=== PATIENT | male | born 1935 | race Caucasian/White ===

== ENCOUNTER → 2016-09-03 | Outpatient (CLI) | payer MEDICARE ==
[2016-09-03 15:33] LABS: BASOPHILS # (AUTO) 0.1 T/MM3 (0-0.2); EOSINOPHILS # (AUTO) 0.2 T/MM3 (0-0.5); EOSINOPHILS % (AUTO) 2.6 % (0-4); HCT - HEMATOCRIT 39.1 % (41-53); HGB - HEMOGLOBIN 12.8 GM/DL (13.5-17.5); IMMATURE GRANULOCYTE # (AUTO) 0.01 T/MM3 (0.00-0.03); IMMATURE GRANULOCYTE % (AUTO) 0.2 % (0.0-0.5); LYMPHOCYTES # (AUTO) 2.1 T/MM3 (1-4.8); LYMPHOCYTES % (AUTO) 36.4 % (23-45); MEAN CORPUSCULAR HGB 31.4 UUG (26-34); MEAN CORPUSCULAR HGB CONC(MCHC 32.7 GM/DL (31-37); MEAN CORPUSCULAR VOLUME 96.1 UM3 (80-100); MEAN PLATELET VOLUME 9.6 UM3 (9.4-12.4); MONOCYTES # (AUTO) 0.5 T/MM3 (0-0.8); MONOCYTES % (AUTO) 9.1 % (0-9.0); NEUTROPHILS #(AUTO)-ABSOLUTE 2.9 T/MM3 (1.8-7.7); NEUTROPHILS % (AUTO) 50.7 % (33-66); RED BLOOD COUNT 4.07 M/MM3 (4.50-5.90); WBC - WHITE BLOOD COUNT 5.8 T/MM3 (4.5-11.0)
[2016-09-03 15:38] LABS: ALBUMIN 4.2 G/DL (3.5-5.0); ALBUMIN/GLOBULIN RATIO 1.4 RATIO (1.1-2.2); ALKALINE PHOSPHATASE 85 U/L (38-126); ALT (SGPT) 34 U/L (21-72); ANION GAP 13 MEQ/L (5-15); AST (SGOT) 34 U/L (17-59); BUN/CREATININE RATIO 22 RATIO (6-26); CALCIUM 9.3 MG/DL (8.4-10.2); CHLORIDE 107 MEQ/L (98-107); CO2 - CARBON DIOXIDE 27 MEQ/L (22-30); CREATININE 1.1 MG/DL (0.8-1.5); GLOMERULAR FILTRATION RATE 64; GLUCOSE 93 MG/DL (75-110); POTASSIUM 4.8 MEQ/L (3.6-5); SODIUM 147 MEQ/L (134-144); TOTAL PROTEIN 7.2 G/DL (6.3-8.2)
== END ==
LOC: LAB 15:16
PROVIDERS: ATTEND Surgery Plastic and Reconstructive Surgery
DX: Z01.818 Encounter for other preprocedural examination (principal)
CPT/HCPCS: 36415; 80053; 85025

== ENCOUNTER 2016-09-11 07:21 | Day surgery (SDC) | payer MEDICARE ==
[~2016-09-11] VITALS: Ht 152.4 cm; Wt 68.7 kg
[2016-09-11] VITALS (30 sets, daily range): BP systolic 126–170; BP diastolic 60–81; PULSE 64–88; RESP 10–22; TEMP 97.4–97.8; O2SAT 95–99; Ht 152.4 cm; Wt 68.7 kg
[~2016-09-11 07:21] MED LIST: FENTANYL 100mcg/2ml INJECTION IV PRN; FLUT16SP EA NOSTRIL; LIDOCAINE 1% (10mg/ml) 2ml SDV INJ ONE; LR 1,000 ML IV PRN; MULT-933 PO; TRAM50TA4 PO
[2016-09-11] MEDS ORDERED: LIDOCAINE 1%/EPI 1:100,000 20ml MDV ONE ×2 (07:25→12:12)
--- OUTSIDE RECORDS SUMMARY | 2016-09-11 07:25 | XMS REPORT | Continuity of Care Document ---
Author Author [facility] Organization [facility] Address Unknown Phone Unavailable Allergies Active Description Code Type Severity Reaction Onset Reported/Identified Relationship to Patient Clinical Status Yes No Known Medication Allergies NKMA N/A N/A 11/03/2013 Medications Problems Procedures Results Encounters ACCT No. Visit Date/Time Discharge Status Pt. Type Provider Facility Loc./Unit Complaint [id number] 05/04/2013 09:42:00 05/04/2013 23 :59:59 CLS Outpatient
--- OUTSIDE RECORDS SUMMARY | 2016-09-11 07:25 | XMS REPORT | Summary of Care ---
Author Author Cristino Argueta M.D. Organization Unknown Address [address] [place] [address] [place] [address] Phone Unavailable Care Team Providers Care Conference Interpreter Name Role Phone Cristino Argueta M.D. Unavailable Unavailable Abigail Chapman Unavailable Unavailable Functional Status Name Dates Details Functional status health issues are not documented Status: Name Dates Details Cognitive status health issues are not documented Status: Problems Name Dates Details Chronic arthritis (716.90, M19.90) Status: Active Elevated PSA (790.93, R97.20) Status: Active Medications Name Dates Details Ibuprofen 200 MG Oral Tablet TAKE 1 TABLET 3 TIMES DAILY NEEDED. Cristino Argueta M.D. * Start 13-Aug-2016 Active TraMADol HCl - 50 MG Oral Tablet Take 2 tablets in the am and 2 tablets in pm as needed * Refills: 0 Cristino Argueta M.D. * Start 13-Aug-2016 Active Multivitamins Oral Capsule * Refills: 0 * Start 14-Aug-2016 Active Allergies and Adverse Reactions Name Dates Details No Known Drug Allergies (Allergy) Status: Active Procedures Procedure Dates Details History of Total Knee Replacement Left History of Colonoscopy Procedures not documented Immunization Name Dates Details Immunizations not documented Family History Name Dates Details Family history of cerebrovascular accident (CVA) (V17.1, Z82.3) Status: Active Name Dates Details Family history of malignant neoplasm of breast (V16.3, Z80.3) Status: Active Family history of leukemia (V16.6, Z80.6) Status: Active Social History Name Dates Details - Status: Name Dates Details Never smoker Vital Signs Date Test Result Details 14-Aug-2016 15:32 BP Systolic 140 mm[Hg] Status: Comments: Location: ; Position: BP Diastolic 79 mm[Hg] Status: Comments: Location: ; Position: Heart Rate 74 /min Status: Comments: Location: ; Height 62 in Status: Weight 154 lb Status: Body Mass Index Calculated 28.17 kg/m2 Status: Body Surface Area Calculated 1.71 m2 Status: Results Date Description Value Details Results not documented Plan of Care Name Dates Details Planned Observations Planned Goals not documented Planned Encounters Appointment; Provider: Cristino Argueta M.D. On 19-Feb-2017 09:00 Instructions Name Dates Details Instructions not documented Encounters Appointment; Cristino Argueta M.D. Encounter Diagnosis: Problem not documented On 14-Aug-2016 15:15
--- OUTSIDE RECORDS SUMMARY | 2016-09-11 07:25 | XMS REPORT | Continuity of Care Document ---
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 Family History Family Member Diagnosis Age At Onset Status Unknown Social History Social History Element Description Quantity Unknown Allergies, Adverse Reactions, Alerts Substance Reaction Severity Status Unknown Medications Medication Instructions Dosage Effective Dates (start - stop) Status ibuprofen 200 mg tablet take 1 tablet (200MG) by oral route every 6 hours as needed with food 200 MG - Active tramadol 50 mg tablet take 1 tablet (50MG) by oral route every 6 hours as needed 50 MG - Active Immunizations Vaccine Date Status Comments flu (split) (3 yrs or older) completed - Completed reason: other registry pneumo (2 yrs or older) ([id number]) completed - Completed reason: other registry Results Test Name Date and Time Measure Units Reference Range Abnormal Flag Comments Unknown Vital Signs Date / Time: Height Weight Pulse Rate Blood Pressure Temperature /09:46:00 63.00 in 155.50 lbs 80 /min 136/86 mm[Hg] 97.9 F Procedures Procedure Date Unknown Encounters Encounter Location Date Patient Visit [facility] Patient Visit [facility] Advance Directives Directive Effective Date Unknown
[2016-09-11] MEDS ORDERED: CEFAZOLIN 1 GRAM INJECTION IV ONE (08:00)
[2016-09-11] MEDS: MIDAZOLAM 5mg/5ml INJECTION IV PRN ×2 (08:52→10:51)
--- NOTE | 2016-09-11 08:59 | ANESPREOP ---
Anesthesia Record Date and Time DATE: 09/11/16 TIME: 08:57 Pre-Op Diagnosis basal cell ca behind rt. ear Proposed Surgical Procedure MOHS EXCISION OF BASAL CELL CARCINOMA RT. MASTOID, RT NECK Allergies: Coded Allergies: No Known Allergies (Unverified , 09/11/16) Ht/Wt/BMI Height: 5 ' 0.00 " Weight: 68.700 kg BMI: 29.6 kg/m2 Vital Signs Date Time Temp Pulse Resp B/P Pulse Ox O2 Delivery O2 Flow Rate FiO2 09/11/16 08:52 16 09/11/16 07:40 97.8 64 163/77 99 Room Air Medications Inpatient Medications Current Medications Medications (Trade) Dose Ordered Sig/Al Start Time Stop Time Status Last Admin Dose Admin Lactated Ringer's (Lactated Ringers) 1,000 ml @ 50 mls/hr Q20H PRN 09/11/16 07:00 09/11/16 08:21 50 MLS/HR Midazolam HCl (Versed) VERSED 0.5-3MG IV PUSH EV... Q10MIN PRN 09/11/16 07:00 09/11/16 08:52 2 MG Fentanyl (Fentanyl) FENTANYL 25-50MCG IV P... PRN PRN 09/11/16 07:00 09/11/16 08:51 25 MCG Multivitamin (Multi-Day Vitamins) 1 Each Tablet, 1 TAB PO DAILY, (Reported) Last Taken: on 09/10/16 0800 Tramadol HCl (Tramadol HCl) 50 Mg Tablet, 1 TAB PO QID PRN for PAIN, (Reported) Last Taken: on 09/10/16 0900 Currently on Beta Terrance: No Medical/Surgical History Anesthesia PMH: Reports: Arthritis (OA KNEES AND SHOULDERS), Cancer (BASAL CELL CARCINOMA- RIGHT JAW PER H&P) Smoking Status: Never smoker Has pt. smoked today?: No Use Chewing Tobacco?: No Second Hand Exposure: No Substance Use Type: does not use Substance last used: unknown Alcohol Intake: none Last Drink: unknown Past Surgical History Orthopedic Surgeries: Yes - LEFT TKA Abdominal Surgeries: Genitourinary Surgeries: Cardiac Surgeries: Endocrine Surgeries: Reproductive Surgeries: Neurological Surgeries: Ear Surgeries: Nose Surgeries: Throat Surgeries: Yes - WISDOM Other Surgeries: Anesthesia Adverse Reactions: FOUND none Family Hx of Anesthesia Advers: none Hx of Motion Sickness: No Pertinent Findings EKG Rhythm: Sinus Rhythm Physical Exam Respiratory: Bilat breath sounds equal, Lungs clear Cardiovascular: FOUND Regular rate, rhythm, FOUND No murmur Airway Assessment Mallampati Score: II TMD: 3 Fingerbreadths Neck Extension: Good Overall Assessment: No Airway Concerns ASA: 2 Plan Anesthesia Plan: MAC Discussion Discussed risks/options/alternatives of anesthesia and questions answered. Patient consents. Nursing pain assessment noted. Present: Spouse Attestation Statement Prior to the delivery of any anesthetic medication, I examined the patient, developed the plan, obtained the patient's consent and discussed the risk and benefits of the procedure with the patient/guardian. DAYANA HUDSON CRNA Sep 11, 2016 08:59
--- NOTE | 2016-09-11 11:58 | NUR ---
FENTANYL AND VERSED 3MG VERSED AND 25 MCG FENTANYL TOTAL GIVEN DURING MOHS PROCEDURE. REMAINING 2MG VERSED AND 75MCG FENTANYL HANDED OFF TO Juliana HUDSON CRNA FOR OR CLOSURE. SEE ANESTHESIA RECORD.
--- NOTE | 2016-09-11 12:24 | NUR ---
MOHS PROCEDURE DR. MARTINO, ANESTHESIA, AND THIS RN INTERVIEWED PT. DR INTO PT ROOM AT 0850 AND 1048 (FOR RE EXCISION). TIME OUT PERFORMED BY THIS RN AT 0855. PREOP NURSE GAVE 2MG VERSED AND 25MCG OF FENTANYL SLOW IV PUSH PER DR MARTINO VERBAL ORDER. START OF PROCEDURE AT 0856. DR. MARTINO INJECTED 15CC OF 1% LIDOCAINE WITH EPI 1:100,000. BOVIE IN AMANDEEP AND PLUGGED IN. HIGHEST POWER USED 16. SPECIMENS STATED BY DR. MARTINO: 1)RIGHT MASTOID LESION-NEEDLE AT 12 O'CLOCK 2)RIGHT NECK LESION-NEEDLE AT 12 O'CLOCK 3)RE EXCISION OF RIGHT NECK LESION 2 O'CLOCK TO 4 O'CLOCK. SPECIMENS SENT TO [facility]
[2016-09-11] MEDS ORDERED: ATROPINE 1mg/10ml Syringe IV PRN (13:00)
[2016-09-11] MEDS ORDERED: HYDROCODONE/APAP 5 mg/325 mg TABLET PO PRN (13:00)
[2016-09-11] MEDS ORDERED: ONDANSETRON 4mg/2ml INJECTION IV PRN (13:00)
[2016-09-11] MEDS ORDERED: CEPH-583 PO (13:04)
[2016-09-11] MEDS ORDERED: ACET1TAB12 PO (13:04)
--- NOTE | 2016-09-11 13:09 | ANESPO ---
Post-Op Note Date 09/11/16 Time: 13:08 Status Pt Participated in Evaluation: Pt participated in person Vital Signs Date Time Temp Pulse Resp B/P Pulse Ox O2 Delivery O2 Flow Rate FiO2 09/11/16 11:55 68 16 164/74 98 Room Air 09/11/16 07:40 97.8 Respiratory Function: Airway patent, Regular respirations Cardiovascular Function: Regular pulse Mental Status: Alert/oriented Pain Level Intensity: 0 Hydration: Taking po fluids, IV infusing Complications during Recovery None apparent Post-Anesthesia Notes pt. tara. well Follow-Up Instructions Instructions Per Surgeon Additional Information none DAYANA HUDSON CRNA Sep 11, 2016 13:09
--- NOTE | 2016-09-11 19:46 | OPNOTEF ---
DATE OF SURGERY 09/11/2016 SURGEON Tiffany Isidro MD PREOPERATIVE DIAGNOSES Basal cell carcinoma, right mastoid. Probable basal cell carcinoma, right neck. 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 PROCEDURE Excision of basal cell carcinoma, right mastoid, with frozen section guidance of margins and complex closure. Lesion size 2.1 cm, excision size 3 cm, final defect 3.6 cm. The right neck lesion was 1.8 cm, excision size 2.9 with a second excision from 2 to 4 o'clock and a final defect of 5 cm. ANESTHESIA MAC INDICATIONS The patient is an 81-year-old male who presented with a complaint of lesions of his right mastoid and his right neck below the jawline. The lesion at the mastoid had been present for over five years - it was nontender and it did not bleed. Pathology results confirmed basal cell carcinoma. The lesion of his right neck had been present for approximately three years. It was also nontender and did not bleed. The patient has no history of skin cancer although his son has had multiple lesions treated - they were unsure of the type. On exam, he had erythematous and pearly lesions of the right mastoid and right neck measuring 2.1 and 1.8 cm. In detailed discussion with the patient preoperatively, the risks, benefits and alternatives of excision of the lesions with frozen section guidance of margins and closure were reviewed including, although not limited to, bleeding, infection, poor or keloid scarring, partial and/or complete loss of the flap and/or graft, residual and/or recurrent disease. The patient understood and wished to proceed. PROCEDURE The patient was first evaluated and, after suitable IV sedation, the right mastoid and right neck lesions were prepped and draped in the usual sterile manner. They were infiltrated with 1% lidocaine with epinephrine. The lesions were then excised and handed off as a specimen with tags at the 12 o'clock margin. Subsequent frozen pathologic evaluation revealed clear margins of the neck lesion but a second and distinct basal cell carcinoma at 3 o'clock. Thus, a second excision from 2 to 4 was performed with subsequent clear margins. The patient was then brought to the operating room and again prepped and draped in the usual sterile manner. The areas were infiltrated with 1% lidocaine with epinephrine. The wounds were then widely undermined and dog ears were removed. The mastoid wound was closed in two layers using interrupted buried sutures of 4-0 PDS and then a running subcuticular suture of 4-0 Monocryl and then interrupted 5-0 nylon. The neck wound was closed with interrupted buried sutures of 3-0 PDS, a running subcuticular suture of 4-0 Monocryl and then interrupted 5-0 nylon as needed for improved closure. Benzoin and Steri-Strips were applied as well as a dry sterile dressing and Mefix tape. Of note, hemostasis throughout was obtained using electrocautery. The patient had received Kefzol 1 g preoperatively. The patient was then brought to the recovery room in stable condition. Estimated blood loss was less than 20 mL. The case was clean. Specimens: Basal cell carcinomas of the right neck and right mastoid. MTDD
== END 2016-09-11 13:45 | disposition home or self-care (01) ==
LOC: SCU 07:21
PROVIDERS: ATTEND Surgery Plastic and Reconstructive Surgery
DX: C44.41 Basal cell carcinoma of skin of scalp and neck (principal)
CPT/HCPCS: 11623; 13121; 13132; 88305; 88331; 88332; J0690; J2250; J3010; J7120